=== PATIENT | female | born 1990 | race Caucasian/White ===

== ENCOUNTER 2019-12-26 04:52 | Inpatient (IN) | payer BC ==
[~2019-12-26] VITALS: Ht 160 cm; Wt 79.5 kg
[~2019-12-26 04:52] MED LIST: NORE-137 PO
[2019-12-26] MEDS ORDERED: FENTANYL/BUPIV./NS/PF 250 ML EPIDCONT SCH ×2 (06:56→14:39)
[2019-12-26] MEDS ORDERED: OXYTOCIN 30U/ 0.9% NaCL 500ML 500 ML IV PRN (06:56)
[2019-12-26] MEDS ORDERED: OXYTOCIN 30U/ 0.9% NaCL 500ML 500 ML IV ONE (06:56)
[2019-12-26] MEDS ORDERED: METOCLOPRAMIDE 5 MG/ML, 2ML IVPush PRN (07:00)
[2019-12-26] MEDS ORDERED: CALCIUM CARBONATE 500 MG TAB.CHEW PO PRN (07:00)
[2019-12-26] MEDS ORDERED: ONDANSETRON 2MG/ML, 2ML IVPush PRN ×2 (07:00→15:00)
[2019-12-26] MEDS ORDERED: TERBUTALINE 1 MG/ML, 1ML SQ PRN (07:00)
[2019-12-26] MEDS ORDERED: SODIUM CHLORIDE FLUSH 10ML SYR IVF PRN (07:00)
[2019-12-26] MEDS ORDERED: TERBUTALINE 1 MG/ML, 1ML IVPush PRN (07:00)
[2019-12-26] MEDS ORDERED: FENTANYL PF 100 MCG/2ML IVPush PRN (07:00)
[2019-12-26] MEDS ORDERED: LACTATED RINGERS 1,000 ML IVBOLUS PRN ×2 (07:00→15:00)
[2019-12-26] MEDS ORDERED: ALUMINUM/MAG/SIMETHICONE 30 ML UDC PO PRN (07:00)
[2019-12-26] MEDS ORDERED: SODIUM CITRATE/CITRIC ACID 30 ML UDC PO PRN (07:00)
[2019-12-26] MEDS ORDERED: LIDOCAINE 1%, 20ML ONE (07:02)
[2019-12-26] MEDS ORDERED: NEWBORN KIT ONE (07:02)
[2019-12-26] MEDS ORDERED: OXYTOCIN 30U/ 0.9% NaCL 500ML 500 ML ONE ×2 (07:03→23:11)
[2019-12-26] MEDS ORDERED: MISOPROSTOL 200 MCG TABLET ONE (07:03)
[2019-12-26] MEDS: LACTATED RINGERS 1,000 ML IV SCH ×2 (07:05→10:17)
[2019-12-26 08:03] LABS: BASOPHILS # (AUTO) 0.01 x10^3/uL (0-0.1); BASOPHILS % (AUTO) 0 % (0-1); EOSINOPHILS # (AUTO) 0.11 x10^3/uL (0-0.4); EOSINOPHILS % (AUTO) 1 % (1-7); LYMPHOCYTES # (AUTO) 1.23 x10^3/uL (1-3.4); LYMPHOCYTES % (AUTO) 15 % (22-44); MD NO; MEAN CORPUSCULAR HEMOGLOBIN 28.8 pg (27.0-34.8); MEAN CORPUSCULAR HGB CONC 33.1 g/dL (32.4-35.8); MONOCYTES % (AUTO) 9 % (2-9); NEUTROPHILS # (AUTO) 6.11 x10^3/uL (1.8-6.8); NEUTROPHILS % (AUTO) 75 % (42-75); PLATELET COUNT 232 x10^3/uL (130-400); RED BLOOD COUNT 3.84 x10^6/uL (3.82-5.3); RED CELL DISTRIBUTION WIDTH 14.1 % (9.6-15.2)
[2019-12-26] MEDS ORDERED: BUPIVACAINE 0.25% ONE (14:01)
[2019-12-26] MEDS ORDERED: FENTANYL/BUPIV./NS/PF 250 ML EPIDCONT ONE (14:01)
[2019-12-26] MEDS ORDERED: LACTATED RINGERS 1,000 ML IV SCH (14:39)
[2019-12-26] MEDS: D5%-LACTATED RINGERS 1,000 ML IV SCH ×2 (14:56→17:18)
[2019-12-26] MEDS ORDERED: NALOXONE 0.4 MG/ML, 1ML IVPush PRN (15:00)
[2019-12-26] MEDS ORDERED: DIPHENHYDRAMINE 50 MG/ML, 1ML IVPush PRN (15:00)
[2019-12-26] MEDS ORDERED: EPHEDRINE 50 MG/ML, 1ML IVPush PRN (15:00)
[2019-12-26 19:10] VITALS: BP 135/79
[2019-12-26] MEDS ORDERED: GLYCERIN ADULT SUPP PR PRN (23:00)
[2019-12-26] MEDS ORDERED: ACETAMINOPHEN 325 MG TABLET PO PRN (23:00)
[2019-12-26] MEDS ORDERED: IBUPROFEN 600 MG TABLET PO PRN (23:00)
[2019-12-26] MEDS ORDERED: METHYLERGONOVINE 0.2 MG/ML IM PRN (23:00)
[2019-12-26] MEDS ORDERED: METOCLOPRAMIDE 5 MG/ML, 2ML IV PRN (23:00)
[2019-12-26] MEDS ORDERED: BISACODYL 10 MG SUPP PR PRN (23:00)
[2019-12-26] MEDS ORDERED: MISOPROSTOL 200 MCG TABLET PR PRN (23:00)
[2019-12-26] MEDS ORDERED: ONDANSETRON 2MG/ML, 2ML IV PRN (23:00)
[2019-12-26] MEDS ORDERED: OXYcodone/APAP 5/325MG TABLET PO PRN ×2 (23:00)
[2019-12-26] MEDS ORDERED: SIMETHICONE 80 MG CHEW TAB PO PRN (23:00)
[2019-12-26] MEDS: OXYTOCIN 30U/ 0.9% NaCL 500ML 500 ML IV SCH (23:14)
[2019-12-27] MEDS: IBUPROFEN 800 MG TABLET PO PRN ×3 (00:35→16:30)
[2019-12-27 00:50] VITALS: BP 129/83
[2019-12-27 04:45] VITALS: BP 123/74
[2019-12-27 06:36] LABS: BASOPHILS # (AUTO) 0.03 x10^3/uL (0-0.1); BASOPHILS % (AUTO) 0 % (0-1); EOSINOPHILS % (AUTO) 0 % (1-7); LYMPHOCYTES # (AUTO) 1.52 x10^3/uL (1-3.4); LYMPHOCYTES % (AUTO) 9 % (22-44); MD NO; MEAN CORPUSCULAR HEMOGLOBIN 29.1 pg (27.0-34.8); MEAN CORPUSCULAR HGB CONC 33.6 g/dL (32.4-35.8); MEAN CORPUSCULAR VOLUME 86.5 fL (80-100); MEAN PLATELET VOLUME 8.6 fL (7.4-10.4); MONOCYTES # (AUTO) 1.03 x10^3/uL (0.2-0.8); MONOCYTES % (AUTO) 6 % (2-9); NEUTROPHILS % (AUTO) 84 % (42-75); PLATELET COUNT 197 x10^3/uL (130-400); RED BLOOD COUNT 3.41 x10^6/uL (3.82-5.3); RED CELL DISTRIBUTION WIDTH 14.3 % (9.6-15.2)
[2019-12-27 07:50] VITALS: BP 116/75
[2019-12-27] MEDS: PRENATAL VIT/IRON/FA 1 EACH TABLET PO SCH (08:22)
[2019-12-27] MEDS: DOCUSATE 100 MG CAPSULE PO PRN (08:22)
[2019-12-27] MEDS: OXYTOCIN 30U/ 0.9% NaCL 500ML 500 ML IV SCH ×2 (08:51→18:51)
[2019-12-27 12:37] VITALS: BP 118/75
[2019-12-27 19:40] VITALS: BP 117/78
[2019-12-28] MEDS: DOCUSATE 100 MG CAPSULE PO PRN ×2 (00:41→07:39)
[2019-12-28] MEDS: OXYTOCIN 30U/ 0.9% NaCL 500ML 500 ML IV SCH (04:51)
[2019-12-28] MEDS: IBUPROFEN 800 MG TABLET PO PRN (07:39)
[2019-12-28 08:34] VITALS: BP 135/82
[2019-12-28] MEDS: PRENATAL VIT/IRON/FA 1 EACH TABLET PO SCH (09:00)
[2019-12-28] MEDS ORDERED: IBUP-1222 PO (10:57)
== END 2019-12-28 11:30 | disposition home or self-care (01) | DRG 807 ==
LOC: LDIP 06:05 → 2NW 12-27 00:21
PROVIDERS: ADMIT Student in an Organized Health Care Education/Training Program; ATTEND Student in an Organized Health Care Education/Training Program
PROC: 10E0XZZ Delivery of Products of Conception, External Approach (ICD-10-PCS; principal; 2019-12-26)
PROC: 0KQM0ZZ Repair Perineum Muscle, Open Approach (ICD-10-PCS; 2019-12-26)
PROC: 10907ZC Drainage of Amniotic Fluid, Therapeutic from Products of Conception, Via Natural or Artificial Opening (ICD-10-PCS; 2019-12-26)
PROC: 3E033VJ Introduction of Other Hormone into Peripheral Vein, Percutaneous Approach (ICD-10-PCS; 2019-12-26)
PROC: 3E0R3BZ Introduction of Anesthetic Agent into Spinal Canal, Percutaneous Approach (ICD-10-PCS; 2019-12-26)
PROC: 00HU33Z Insertion of Infusion Device into Spinal Canal, Percutaneous Approach (ICD-10-PCS; 2019-12-26)
DX: O98.32 Other infections with a predominantly sexual mode of transmission complicating childbirth (principal); Z37.0 Single live birth; A60.00 Herpesviral infection of urogenital system, unspecified; Z3A.39 39 weeks gestation of pregnancy; O99.52 Diseases of the respiratory system complicating childbirth; J45.909 Unspecified asthma, uncomplicated; O70.1 Second degree perineal laceration during delivery; Z80.3 Family history of malignant neoplasm of breast; Z82.3 Family history of stroke; Z83.3 Family history of diabetes mellitus
CPT/HCPCS: 36415; J7121; 85025; 86592; 86850; 86900; G0378; J3490; J2590; J3010; J7120